=== PATIENT | male | born 1960 | race African-American/Black ===

== ENCOUNTER 2018-11-05 19:58 | Emergency (ER) | payer MEDICAID ==
[~2018-11-05] VITALS: Ht 167.6 cm; Wt 75.0 kg
[2018-11-06 05:33] VITALS: BP 144/87
== END 2018-11-06 05:36 | disposition home or self-care (01) ==
LOC: ER 19:58
DX: J06.9 Acute upper respiratory infection, unspecified (principal)
CPT/HCPCS: 71045; 99283

== ENCOUNTER 2019-01-11 03:15 | Emergency (ER) | payer MEDICAID, OTHER ==
[~2019-01-11] VITALS: Ht 167.6 cm; Wt 71.0 kg
[2019-01-11 03:29] VITALS: BP 144/90
== END 2019-01-11 07:58 | disposition left against medical advice (07) ==
LOC: ER 03:15
DX: R68.89 Other general symptoms and signs (principal); Z53.21 Procedure and treatment not carried out due to patient leaving prior to being seen by health care provider

== ENCOUNTER 2019-01-13 16:45 | Emergency (ER) | payer MEDICAID, OTHER ==
[~2019-01-13] VITALS: Ht 175.3 cm; Wt 77.0 kg
[2019-01-13 19:00] VITALS: BP 160/90
== END 2019-01-13 19:00 | disposition left against medical advice (07) ==
LOC: ER 16:45
DX: R42 Dizziness and giddiness (principal); I10 Essential (primary) hypertension; Z98.890 Other specified postprocedural states
CPT/HCPCS: 82962; 99283

== ENCOUNTER 2019-01-15 08:20 | Emergency (ER) | payer MEDICAID ==
[~2019-01-15] VITALS: Ht 177.8 cm; Wt 80.0 kg
[2019-01-15 08:41] VITALS: BP 120/65
== END 2019-01-15 09:12 | disposition home or self-care (01) ==
LOC: ER 08:20
DX: Z46.6 Encounter for fitting and adjustment of urinary device (principal); N40.0 Benign prostatic hyperplasia without lower urinary tract symptoms; I10 Essential (primary) hypertension
CPT/HCPCS: 99283

== ENCOUNTER 2019-01-19 14:50 | Emergency (ER) | payer MEDICAID ==
[~2019-01-19] VITALS: Ht 170.2 cm; Wt 70.0 kg
[2019-01-19 16:00] VITALS: BP 163/97
[2019-01-19 16:03] LABS: BASOPHILS % 0.5 % (0.0-2.0); EOSINOPHILS % 2.7 % (0.0-5.0); HEMATOCRIT. 35.2 % (42.0-52.0); HEMOGLOBIN. 11.7 g/dL (14.0-18.0); LYMPHOCYTES % 15.4 % (20.0-50.0); MEAN CORPUSCULAR HEMOGLOBIN 28.4 pg (28.0-32.0); MEAN CORPUSCULAR VOLUME 85.8 fL (80.0-94.0); MONOCYTES % 4.4 % (2.0-8.0); PLATELET 228 x1000/uL (130-400); RED BLOOD CELL COUNT 4.11 mill/uL (4.7-6.1); RED CELL DISTRIBUTION WIDTH 14.6 % (11.6-14.6)
[2019-01-19 16:04] LABS: CLARITY URINE CLEAR (CLEAR); COLOR URINE YELLOW (YELLOW); KETONES URINE NEGATIVE (NEGATIVE); LEUKOCYTE ESTERASE URINE 1+ (NEGATIVE); NITRITE URINE NEGATIVE (NEGATIVE); OCCULT BLOOD URINE NEGATIVE (NEGATIVE); PH URINE 7.5 (4.5-8.0); PROTEIN URINE NEGATIVE (NEGATIVE); SPECIFIC GRAVITY URINE 1.004 (1.005-1.030); UROBILINOGEN URINE 0.2 E.U./dL (0.2-1.0)
[2019-01-19 16:04] LABS: CHLORIDE 106 mEq/L (98-107)
[2019-01-19 16:08] LABS: ETHANOL BLOOD < 10 mg/dL
[2019-01-19 16:11] LABS: LDL CHOLESTEROL 89 mg/dL (5-100)
[2019-01-19 16:14] LABS: *AMPHETAMINES SCREEN URINE NEGATIVE (NEGATIVE); *BARBITURATES SCREEN URINE NEGATIVE (NEGATIVE); *BENZODIAZEPINES SCREEN URINE NEGATIVE (NEGATIVE)
[2019-01-19 16:15] LABS: *COCAINE SCREEN URINE NEGATIVE (NEGATIVE); CANNABINOID URINE SCREEN NEGATIVE (NEGATIVE); METHADONE URINE SCREEN NEGATIVE (NEGATIVE); OPIATES URINE SCREEN NEGATIVE (NEGATIVE); PHENCYCLIDINE URINE SCREEN PRESUMTIVE POSITIVE (NEGATIVE)
== END 2019-01-19 17:08 | disposition home or self-care (01) ==
LOC: ER 14:50
DX: F16.10 Hallucinogen abuse, uncomplicated (principal); G45.9 Transient cerebral ischemic attack, unspecified; R47.81 Slurred speech; D64.9 Anemia, unspecified; I10 Essential (primary) hypertension; E78.00 Pure hypercholesterolemia, unspecified; N40.0 Benign prostatic hyperplasia without lower urinary tract symptoms; Z98.890 Other specified postprocedural states
CPT/HCPCS: 36415; 71045; 80305; 80320; 82962; 83721; 84484; 93005; 99284; G0480

== ENCOUNTER 2019-02-05 17:36 | Emergency (ER) | payer MEDICAID ==
[~2019-02-05] VITALS: Ht 180.3 cm; Wt 73.0 kg
[2019-02-05 17:40] VITALS: BP 173/108
[2019-02-05] MEDS ORDERED: SODIUM CHLORIDE 0.9% 1,000 ML IV ONE (18:33)
[2019-02-05] MEDS ORDERED: ONDANSETRON HCL 4MG/2ML INJ IV STA (18:33)
[2019-02-05 18:51] LABS: CLARITY URINE CLEAR (CLEAR); COLOR URINE YELLOW (YELLOW); KETONES URINE NEGATIVE (NEGATIVE); LEUKOCYTE ESTERASE URINE TRACE (NEGATIVE); NITRITE URINE NEGATIVE (NEGATIVE); OCCULT BLOOD URINE NEGATIVE (NEGATIVE); PROTEIN URINE NEGATIVE (NEGATIVE); SPECIFIC GRAVITY URINE 1.009 (1.005-1.030); UROBILINOGEN URINE 0.2 E.U./dL (0.2-1.0)
[2019-02-05 19:04] LABS: *BENZODIAZEPINES SCREEN URINE NEGATIVE (NEGATIVE); *COCAINE SCREEN URINE NEGATIVE (NEGATIVE); METHADONE URINE SCREEN NEGATIVE (NEGATIVE); OPIATES URINE SCREEN NEGATIVE (NEGATIVE)
[2019-02-05 19:05] LABS: *AMPHETAMINES SCREEN URINE NEGATIVE (NEGATIVE); *BARBITURATES SCREEN URINE NEGATIVE (NEGATIVE); CANNABINOID URINE SCREEN NEGATIVE (NEGATIVE); PHENCYCLIDINE URINE SCREEN PRESUMTIVE POSITIVE (NEGATIVE)
[2019-02-05 19:06] LABS: BASOPHILS % 0.3 % (0.0-2.0); EOSINOPHILS % 0.7 % (0.0-5.0); HEMATOCRIT. 33.5 % (42.0-52.0); HEMOGLOBIN. 11.2 g/dL (14.0-18.0); LYMPHOCYTES % 8.7 % (20.0-50.0); MEAN CORPUSCULAR HEMOGLOBIN 28.2 pg (28.0-32.0); MEAN CORPUSCULAR VOLUME 84.6 fL (80.0-94.0); MEAN PLATELET VOLUME 8.4 fl (7.4-10.4); MONOCYTES % 3.1 % (2.0-8.0); NEUTROPHILS % 87.2 % (40.0-76.0); PLATELET 406 x1000/uL (130-400); RED BLOOD CELL COUNT 3.96 mill/uL (4.7-6.1); RED CELL DISTRIBUTION WIDTH 14.4 % (11.6-14.6)
[2019-02-05 19:13] LABS: CHLORIDE 105 mEq/L (98-107)
[2019-02-05 19:19] LABS: ETHANOL BLOOD < 10 mg/dL
== END 2019-02-05 19:29 | disposition left against medical advice (07) ==
LOC: ER 17:36
DX: R41.82 Altered mental status, unspecified (principal); I10 Essential (primary) hypertension; F16.129 Hallucinogen abuse with intoxication, unspecified
CPT/HCPCS: 36415; 80053; 80305; 80320; 81003; 84484; 85025; 99283; J7030; G0480

== ENCOUNTER 2019-11-15 01:26 | Inpatient (IN) | payer MEDICAID, OTHER ==
[~2019-11-15] VITALS: Ht 165.1 cm; Wt 70.3 kg
[2019-11-15] MEDS ORDERED: ONDANSETRON HCL 4MG/2ML INJ IV STA (01:40)
[2019-11-15] MEDS ORDERED: SODIUM CHLORIDE 0.9% 1,000 ML IV ONE (01:40)
[2019-11-15 02:18] LABS: BASOPHILS % 0.2 % (0.0-2.0); EOSINOPHILS % 0.6 % (0.0-5.0); HEMATOCRIT. 38.1 % (42.0-52.0); HEMOGLOBIN. 12.6 g/dL (14.0-18.0); LYMPHOCYTES % 7.2 % (20.0-50.0); MEAN CORPUSCULAR HEMOGLOBIN 28.4 pg (28.0-32.0); MEAN CORPUSCULAR VOLUME 85.9 fL (80.0-94.0); MEAN PLATELET VOLUME 9.8 fl (7.4-10.4); PLATELET 198 x1000/uL (130-400); RED BLOOD CELL COUNT 4.44 mill/uL (4.7-6.1); RED CELL DISTRIBUTION WIDTH 15.4 % (11.6-14.6)
[2019-11-15 02:23] LABS: CHLORIDE 108 mEq/L (98-107)
[2019-11-15 02:27] LABS: ETHANOL BLOOD < 10 mg/dL
[2019-11-15 02:30] LABS: LDL CHOLESTEROL 98 mg/dL (5-100)
[2019-11-15] MEDS ORDERED: FOLIC ACID 1 MG, THIAMINE HCL 100 MG, MVI, ADULT NO.1 10 ML in DEXTROSE 5% WATER 1,000 ML IV ONE ×4 (02:30)
[2019-11-15] MEDS ORDERED: LORAZEPAM 2MG/ML CPJ IV ONE (02:30)
[2019-11-15 02:34] LABS: PROTHROMBIN TIME 10.6 sec (9.6-11.0)
[2019-11-15 03:27] LABS: CLARITY URINE CLEAR (CLEAR); COLOR URINE YELLOW (YELLOW); KETONES URINE TRACE (NEGATIVE); LEUKOCYTE ESTERASE URINE NEGATIVE (NEGATIVE); NITRITE URINE NEGATIVE (NEGATIVE); OCCULT BLOOD URINE NEGATIVE (NEGATIVE); PH URINE 7.5 (4.5-8.0); PROTEIN URINE TRACE (NEGATIVE); SPECIFIC GRAVITY URINE 1.014 (1.005-1.030)
[2019-11-15] MEDS ORDERED: MIDAZOLAM HCL 2 MG/2 ML VIAL IV ONE (03:30)
[2019-11-15 03:36] LABS: *AMPHETAMINES SCREEN URINE NEGATIVE (NEGATIVE); *BARBITURATES SCREEN URINE NEGATIVE (NEGATIVE); *BENZODIAZEPINES SCREEN URINE NEGATIVE (NEGATIVE)
[2019-11-15 03:37] LABS: *COCAINE SCREEN URINE PRESUMTIVE POSITIVE (NEGATIVE); CANNABINOID URINE SCREEN NEGATIVE (NEGATIVE); METHADONE URINE SCREEN NEGATIVE (NEGATIVE); OPIATES URINE SCREEN NEGATIVE (NEGATIVE); PHENCYCLIDINE URINE SCREEN PRESUMTIVE POSITIVE (NEGATIVE)
[2019-11-15] MEDS ORDERED: ACETAMINOPHEN 325MG TABLET PO PRN (06:45)
[2019-11-15] MEDS ORDERED: ONDANSETRON HCL 4MG/2ML INJ IV PRN (06:45)
[2019-11-15] MEDS: DEXT 5%/0.45% NACL 1000ML 1,000 ML IV SCH ×2 (08:00→18:52)
[2019-11-15] MEDS ORDERED: HALOPERIDOL LACTATE 5MG/ML VIAL IM ONE (14:30)
[2019-11-15] MEDS ORDERED: HYDRALAZINE 20MG/ML VIAL IV ONE (14:30)
[2019-11-15] MEDS: HALOPERIDOL LACTATE 5MG/ML VIAL IM PRN (16:44)
[2019-11-15 17:11] VITALS: BP 160/90
[2019-11-15 18:00] VITALS: BP 143/85
[2019-11-15] MEDS: HYDRALAZINE 20MG/ML VIAL IV SCH ×2 (18:00→18:52)
[2019-11-15] MEDS: ENALAPRIL 2.5MG/2ML VIAL 2ML IV SCH ×2 (18:00→18:53)
[2019-11-15 20:00] VITALS: BP 102/52
[2019-11-15 22:00] VITALS: BP 102/49
[2019-11-16] VITALS (17 sets, daily range): BP systolic 85–152; BP diastolic 47–79
[2019-11-16] MEDS: HALOPERIDOL LACTATE 5MG/ML VIAL IM PRN (00:59)
[2019-11-16] MEDS: HYDRALAZINE 20MG/ML VIAL IV SCH ×5 (00:59→23:59)
[2019-11-16] MEDS: ENALAPRIL 2.5MG/2ML VIAL 2ML IV SCH ×4 (06:17→18:00)
[2019-11-16 07:10] LABS: CHLORIDE 109 mEq/L (98-107)
[2019-11-16 07:49] LABS: BASOPHILS % 0.3 % (0.0-2.0); EOSINOPHILS % 1.3 % (0.0-5.0); LYMPHOCYTES % 13.7 % (20.0-50.0); MEAN CORPUSCULAR HEMOGLOBIN 28.4 pg (28.0-32.0); MEAN CORPUSCULAR VOLUME 87.7 fL (80.0-94.0); MONOCYTES % 7.2 % (2.0-8.0); NEUTROPHILS % 77.5 % (40.0-76.0); PLATELET 186 x1000/uL (130-400); RED BLOOD CELL COUNT 4.57 mill/uL (4.7-6.1); RED CELL DISTRIBUTION WIDTH 15.1 % (11.6-14.6)
[2019-11-16] MEDS: DEXT 5%/0.45% NACL 1000ML 1,000 ML IV SCH ×2 (09:12→18:52)
[2019-11-16] MEDS: POTASSIUM CHLORIDE 20MEQ TABLET SR PO SCH (15:53)
[2019-11-16] MEDS: ENALAPRIL 1.25MG/ML VIAL 1ML IV SCH (23:59)
[2019-11-17] VITALS (7 sets, daily range): BP systolic 96–145; BP diastolic 49–69
[2019-11-17] MEDS: HYDRALAZINE 20MG/ML VIAL IV SCH ×2 (05:38→11:56)
[2019-11-17] MEDS: ENALAPRIL 1.25MG/ML VIAL 1ML IV SCH ×2 (05:39→11:56)
[2019-11-17] MEDS: DEXT 5%/0.45% NACL 1000ML 1,000 ML IV SCH (08:49)
[2019-11-17] MEDS: POTASSIUM CHLORIDE 20MEQ TABLET SR PO SCH (08:49)
== END 2019-11-17 13:40 | disposition left against medical advice (07) | DRG 52 ==
LOC: ER 01:26 → 5EST 05:26 → EDBEDREQTM 05:30 → EDBEDREQ 05:30 → CANRESERV 15:36 → ENRESERV 15:36
PROVIDERS: ADMIT Hospitalist; ATTEND Hospitalist
DX: G92 Toxic encephalopathy (principal); F19.10 Other psychoactive substance abuse, uncomplicated; I10 Essential (primary) hypertension; R29.6 Repeated falls; Z53.29 Procedure and treatment not carried out because of patient's decision for other reasons
CPT/HCPCS: 36415; 71045; 72170; 80053; 80305; 80320; 81003; 82140; 82962; 83721; 84484; 85025; 86850; 86900; 93005; 93970; 97162; 99291; C1893; J0360; J1630; J2060; J2250; J2405; J3411; J3490; J7030; J7070; G0480

== ENCOUNTER 2019-11-20 21:59 | Emergency (ER) | payer MEDICAID, OTHER ==
[~2019-11-20] VITALS: Ht 172.7 cm; Wt 72.0 kg
[2019-11-21 01:32] LABS: CLARITY URINE CLEAR (CLEAR); COLOR URINE YELLOW (YELLOW); KETONES URINE NEGATIVE (NEGATIVE); LEUKOCYTE ESTERASE URINE 1+ (NEGATIVE); NITRITE URINE NEGATIVE (NEGATIVE); OCCULT BLOOD URINE NEGATIVE (NEGATIVE); PH URINE 6.5 (4.5-8.0); PROTEIN URINE NEGATIVE (NEGATIVE); SPECIFIC GRAVITY URINE 1.016 (1.005-1.030)
[2019-11-21 01:47] LABS: *AMPHETAMINES SCREEN URINE NEGATIVE (NEGATIVE); *BARBITURATES SCREEN URINE NEGATIVE (NEGATIVE); *BENZODIAZEPINES SCREEN URINE NEGATIVE (NEGATIVE); *COCAINE SCREEN URINE PRESUMTIVE POSITIVE (NEGATIVE); CANNABINOID URINE SCREEN NEGATIVE (NEGATIVE); METHADONE URINE SCREEN NEGATIVE (NEGATIVE); OPIATES URINE SCREEN NEGATIVE (NEGATIVE)
[2019-11-21 01:48] LABS: PHENCYCLIDINE URINE SCREEN PRESUMTIVE POSITIVE (NEGATIVE)
[2019-11-21] MEDS ORDERED: IBUPROFEN 600MG TABLET PO ONE (02:00)
[2019-11-21 02:36] VITALS: BP 122/68
== END 2019-11-21 02:37 | disposition home or self-care (01) ==
LOC: ER 21:59
DX: F15.10 Other stimulant abuse, uncomplicated (principal); F16.10 Hallucinogen abuse, uncomplicated; R13.10 Dysphagia, unspecified
CPT/HCPCS: 80305; 81003; 82962; 99283

== ENCOUNTER 2020-01-26 20:54 | Emergency (ER) | payer MEDICAID ==
[~2020-01-26] VITALS: Ht 172.7 cm; Wt 76.0 kg
[2020-01-26] MEDS ORDERED: SODIUM CHLORIDE 0.9% 1,000 ML IV ONE (22:25)
[2020-01-26] MEDS ORDERED: HYDRALAZINE 20MG/ML VIAL IV ONE (22:30)
[2020-01-26 22:39] LABS: BASOPHILS % 0.5 % (0.0-2.0); EOSINOPHILS % 2.5 % (0.0-5.0); HEMATOCRIT. 37.4 % (42.0-52.0); HEMOGLOBIN. 12.7 g/dL (14.0-18.0); LYMPHOCYTES % 14.7 % (20.0-50.0); MEAN CORPUSCULAR HEMOGLOBIN 29.1 pg (28.0-32.0); MEAN CORPUSCULAR VOLUME 85.6 fL (80.0-94.0); MEAN PLATELET VOLUME 9.5 fl (7.4-10.4); MONOCYTES % 5.3 % (2.0-8.0); PLATELET 198 x1000/uL (130-400); RED BLOOD CELL COUNT 4.37 mill/uL (4.7-6.1); RED CELL DISTRIBUTION WIDTH 14.1 % (11.6-14.6)
[2020-01-26 22:43] LABS: CHLORIDE 104 mEq/L (98-107)
[2020-01-26 22:48] LABS: ETHANOL BLOOD < 10 mg/dL
[2020-01-26 23:03] LABS: *AMPHETAMINES SCREEN URINE PRESUMTIVE POSITIVE (NEGATIVE); *BARBITURATES SCREEN URINE NEGATIVE (NEGATIVE); *BENZODIAZEPINES SCREEN URINE PRESUMTIVE POSITIVE (NEGATIVE); *COCAINE SCREEN URINE PRESUMTIVE POSITIVE (NEGATIVE); CANNABINOID URINE SCREEN NEGATIVE (NEGATIVE); METHADONE URINE SCREEN NEGATIVE (NEGATIVE); OPIATES URINE SCREEN NEGATIVE (NEGATIVE); PHENCYCLIDINE URINE SCREEN PRESUMTIVE POSITIVE (NEGATIVE)
[2020-01-26] MEDS ORDERED: CLONIDINE 0.2MG TABLET PO ONE (23:30)
[2020-01-27 00:21] VITALS: BP 185/113
== END 2020-01-27 01:50 | disposition home or self-care (01) ==
LOC: ER 20:54
DX: F19.10 Other psychoactive substance abuse, uncomplicated (principal); F10.129 Alcohol abuse with intoxication, unspecified; Y90.0 Blood alcohol level of less than 20 mg/100 ml; I10 Essential (primary) hypertension; F14.10 Cocaine abuse, uncomplicated
CPT/HCPCS: 36415; 80053; 80305; 80320; 85025; 96374; 99283; J0360; J7030; G0480

== ENCOUNTER 2020-03-28 13:43 | Emergency (ER) | payer MEDICAID ==
[~2020-03-28] VITALS: Ht 170.2 cm; Wt 80.0 kg
[2020-03-28] MEDS ORDERED: ACETAMINOPHEN 325MG TABLET PO STA (14:19)
[2020-03-28 14:28] VITALS: BP 150/79
[2020-03-28 14:39] LABS: BASOPHILS % 0.3 % (0.0-2.0); EOSINOPHILS % 0.4 % (0.0-5.0); HEMATOCRIT. 36.4 % (42.0-52.0); HEMOGLOBIN. 12.4 g/dL (14.0-18.0); LYMPHOCYTES % 20.2 % (20.0-50.0); MEAN CORPUSCULAR HEMOGLOBIN 28.8 pg (28.0-32.0); MEAN CORPUSCULAR VOLUME 84.8 fL (80.0-94.0); MEAN PLATELET VOLUME 9.3 fl (7.4-10.4); MONOCYTES % 7.6 % (2.0-8.0); NEUTROPHILS % 71.5 % (40.0-76.0); PLATELET 216 x1000/uL (130-400); RED BLOOD CELL COUNT 4.29 mill/uL (4.7-6.1); RED CELL DISTRIBUTION WIDTH 14.3 % (11.6-14.6)
[2020-03-28 14:47] LABS: CHLORIDE 105 mEq/L (98-107)
[2020-03-28 14:55] LABS: ETHANOL BLOOD < 10 mg/dL
== END 2020-03-28 16:15 | disposition left against medical advice (07) ==
LOC: ER 13:43
DX: F16.188 Hallucinogen abuse with other hallucinogen-induced disorder (principal); F10.10 Alcohol abuse, uncomplicated; Y90.0 Blood alcohol level of less than 20 mg/100 ml; S70.12XA Contusion of left thigh, initial encounter; X58.XXXA Exposure to other specified factors, initial encounter; Y93.89 Activity, other specified; Y92.89 Other specified places as the place of occurrence of the external cause; M25.511 Pain in right shoulder
CPT/HCPCS: 36415; 73552; 80053; 80320; 85025; 99285; G0480

== ENCOUNTER 2020-05-16 20:47 | Emergency (ER) | payer MEDICAID ==
[~2020-05-16] VITALS: Ht 170.2 cm; Wt 74.0 kg
[2020-05-16 20:56] VITALS: BP 162/102
[2020-05-16] MEDS ORDERED: ACETAMINOPHEN 325MG TABLET PO ONE (21:45)
== END 2020-05-17 00:55 | disposition home or self-care (01) ==
LOC: ER 20:47
DX: M25.521 Pain in right elbow (principal); M79.675 Pain in left toe(s); F10.129 Alcohol abuse with intoxication, unspecified; F16.10 Hallucinogen abuse, uncomplicated; Y90.9 Presence of alcohol in blood, level not specified
CPT/HCPCS: 73070; 73660; 99284